=== PATIENT | male | born 1955 | race Caucasian/White ===

== ENCOUNTER 2018-08-18 10:23 | Observation (INO) ==
[2018-08-18] MEDS ORDERED: Acetaminophen 325 MG Tablet PO PRN (14:22)
[2018-08-18] MEDS ORDERED: Bisacodyl 10 MG Supp RECTAL PRN (14:22)
--- NOTE | 2018-08-18 16:53 | P.CONGI ---
History of Present Illness Consult date: 08/18/18 Consult reason: Lower GI bleeding Chief complaint: GI bleed. History of Present Illness: Mr. Hernandez is a 63-year-old male patient who is visiting his daughter from [place]. Patient has a significant medical history comprising of congestive heart failure, coronary artery bypass grafting, atrial fibrillation, pulmonary embolism (on Eliquis and aspirin last dose 08/17/2018), post cardiac arrest 2 years ago, depression, nystagmus, and is legally blind. History of pacemaker/ AICD insertion in 2014. Patient also has a 2-year history of a left upper lobe lung nodule for which he is planning to see a system configuration specialist when he returns to [place]. This service has been consulted to evaluate patient's report of blood in stool. Patient and daughter report that last night patient noted a small amount of bright red blood on toilet tissue after patient had a BM. Patient denied any straining or hard stools. This morning patient states he noticed a larger amount of bright red blood in the toilet water mixed with soft brown stool. Patient denies any nausea or vomiting,reports lower abdomen feels "tight". Patient denies any nausea or vomiting. States last EGD/ colonoscopy was done 2 years ago and to his recollection there was a benign polyp removed. Patient denies any known family history significant for any gastrointestinal disorders/diseases. He denies alcohol use and states that he smoked cigarettes for 38 years and stopped smoking 4 years ago. 08/18/2018 WBC 9.3 RBCs 4.6 hemoglobin 14.2 hematocrit 43.3 platelet count 250 INR 1.0 total bilirubin 0.5 AST 109 ALT 89 alk phos 93. Discussed plan for EGD/colonoscopy with patient and daughter both of her home verbalized understanding and agreement. <Sharron Delgado - Last Filed: 08/18/18 16:38> Review of Systems All other systems reviewed negative except as stated in HPI <Sharron Delgado - Last Filed: 08/18/18 16:38> PMFSH - History History Provided By: Patient - Medical History Medical History: Medical History (Last Updated 08/18/18 @ 11:49 by Adrianna Madsen RN) Atrial fibrillation CHF (congestive heart failure) Cardiac arrest Coronary artery disease Hypercholesterolemia Hyperlipidemia Hypothyroidism Left atrial thrombus Lung nodules Myocardial infarction Pacemaker Reactive depression Rib fracture - Surgical History Surgical History: Surgical History (Last Updated 08/18/18 @ 11:49 by Adrianna Madsen RN) AICD (automatic cardioverter/defibrillator) present Hx of CABG - Tobacco History Second Hand Smoke Exposure: No Tobacco Use In Past 30 Days: No Smoking Status: Former smoker Tobacco Type: Cigarettes - Alcohol History How Often Do You Have a Drink Containing Alcohol: Never - Substance Use History Substance History: No History of Abuse <Sharron Delgado - Last Filed: 08/18/18 16:38> - Medical History Medical History: Medical History (Last Updated 08/18/18 @ 11:49 by Adrianna Madsen RN) Atrial fibrillation CHF (congestive heart failure) Cardiac arrest Coronary artery disease Hypercholesterolemia Hyperlipidemia Hypothyroidism Left atrial thrombus Lung nodules Myocardial infarction Pacemaker Reactive depression Rib fracture - Surgical History Surgical History: Surgical History (Last Updated 08/18/18 @ 11:49 by Adrianna Madsen RN) AICD (automatic cardioverter/defibrillator) present Hx of CABG <Eren Wilson - Last Filed: 08/21/18 13:07> Medications and Allergies Active Medications: Active Medications Acetaminophen (Tylenol) 650 mg PO Q4H PRN PRN Reason: Headache, fever, pain 1-4 Al Hydroxide/Mg Hydroxide (Milk Of Magnesia Liq) 30 ml PO Q12H PRN PRN Reason: Mild Constipation Bisacodyl (Dulcolax Supp) 10 mg RECTAL DAILY PRN PRN Reason: SEVERE CONSITIPATION Lactulose (Lactulose Liq) 30 ml PO DAILY PRN PRN Reason: SEVERE CONSITIPATION Ondansetron HCl (Zofran Inj) 4 mg IV.PUSH Q6H PRN PRN Reason: NAUSEA OR VOMITING Sennosides (Senokot) 17.2 mg PO Q12H PRN PRN Reason: Moderate Constipation <Sharron Delgado - Last Filed: 08/18/18 16:38> <Eren Wilson - Last Filed: 08/21/18 13:07> Allergies Allergy/AdvReac Type Severity Reaction Status Date / Time No Known Allergies Allergy Verified 08/18/18 11:41 Home Medications Medication Instructions Recorded Confirmed Type alprazolam [Xanax] 0.25 mg PO BID 08/18/18 08/18/18 History amiodarone 400 mg PO DAILY 08/18/18 08/18/18 History apixaban [Eliquis] 5 mg PO BID 08/18/18 08/18/18 History atorvastatin 10 mg PO DAILY 08/18/18 08/18/18 History carvedilol 6.25 mg PO BID 08/18/18 08/18/18 History escitalopram oxalate 20 mg PO DAILY 08/18/18 08/18/18 History levothyroxine 25 mcg PO DAILY 08/18/18 08/18/18 History sacubitril-valsartan [Entresto] 1 tab PO DAILY 08/18/18 08/18/18 History zolpidem 10 mg PO HS PRN 08/18/18 08/18/18 History Exam - Constitutional no acute distress, obese, cooperative - Routine HEENT Exam Head: Present: normocephalic Eye: Present: nystagmus - Routine Respiratory Exam Present: CTA bilaterally. Absent: accessory muscle use - Routine Abdominal Exam Present: soft, normoactive bowel sounds, distended. Absent: guarding - Routine Extremities Exam Present: full ROM, pulses intact. Absent: edema - Routine Skin Exam Present: dry, pallor, warm - Routine Neurological Exam Present: alert, oriented X3 <Sharron Delgado - Last Filed: 08/18/18 16:38> Results - Labs CBC & Chem 7: 08/19/18 05:45 <Eren Wilson - Last Filed: 08/21/18 13:07> Assessment and Plan (1) Lower gastrointestinal hemorrhage Status: Acute Code(s): K92.2 - Gastrointestinal hemorrhage, unspecified - Plan Mr. Hernandez is a 63-year-old male patient who is visiting his daughter from [place]. Patient has a significant medical history comprising of congestive heart failure, coronary artery bypass grafting, atrial fibrillation, pulmonary embolism (on Eliquis and aspirin last dose 08/17/2018), post cardiac arrest 2 years ago, depression, nystagmus, and is legally blind. History of pacemaker/ AICD insertion in 2014. Patient also has a 2-year history of a left upper lobe lung nodule for which he is planning to see a system configuration specialist when he returns to [place]. This service has been consulted to evaluate patient's report of blood in stool. Patient and daughter report that last night patient noted a small amount of bright red blood on toilet tissue after patient had a BM. Patient denied any straining or hard stools. This morning patient states he noticed a larger amount of bright red blood in the toilet water mixed with soft brown stool. Patient denies any nausea or vomiting,reports lower abdomen feels "tight". Patient denies any nausea or vomiting. States last EGD/ colonoscopy was done 2 years ago and to his recollection there was a benign polyp removed. Patient denies any known family history significant for any gastrointestinal disorders/diseases. He denies alcohol use and states that he smoked cigarettes for 38 years and stopped smoking 4 years ago. 08/18/2018 WBC 9.3 RBCs 4.6 hemoglobin 14.2 hematocrit 43.3 platelet count 250 INR 1.0 total bilirubin 0.5 AST 109 ALT 89 alk phos 93. Discussed plan for EGD/colonoscopy with patient and daughter both of her home verbalized understanding and agreement Lower GI bleeding Scant amount of bright red blood noted last evening per patient. This a.m. larger amount of bright red blood noted mixed with soft stool. Patient denies any nausea or vomiting. Plan for EGD and colonoscopy in the a.m--Magnesium Citrate prep. Hemoglobin 14.2 hematocrit 43.3. Plan -Clear liquid diet -N.p.o. after midnight -Consent for EGD and colonoscopy -Magnesium citrate prep -Monitor for bleeding -Continue to hold Eliquis and aspirin -Monitor labs -Supportive care -Further recommendations to follow based on patient status and findings This patient has been seen by myself and Dr. Wilson and this note is written on his behalf - Attending Attestation Dr. Wilson <Sharron Delgado - Last Filed: 08/18/18 16:38> (1) Lower gastrointestinal hemorrhage Status: Inactive Code(s): K92.2 - Gastrointestinal hemorrhage, unspecified - Plan Seen and examined with [employer] MACHINE CONSULTANT, egd/colonoscopy planned. Monitor for bleeding. Thank you <Eren Wilson - Last Filed: 08/21/18 13:07>
[2018-08-18] MEDS ORDERED: Magnesium Citrate Liq 300 ML Bottle PO ONE ×2 (16:57→19:00)
--- NOTE | 2018-08-18 19:19 | P.HP ---
History of Present Illness Service: Hospitalist Primary Care Physician: UNKNOWN Chief Complaint: Blood in stool History of Present Illness: Mr. Win is a pleasant 63 year old male with a history of CAD s/p CABG, Afib, PE, cardiac arrest who presented to [facility] ED due to both bright red blood and dark stool. He has noticed small amount of blood in the stool in the last few days. However, today he noticed significant amount red blood. He has also noticed dark stool. He denies any nausea, vomiting. No chest pain but he does feel somewhat weak. He denies any changes in bladder habits. No shortness of breath, cough or abdominal pain. On arrival, Hgb 14.2, HCT 43.3, Plt 250K, INR 1.0. Past medical history: CAD, Afib, AICD placement, Pulmonary embolism Past surgical history : CABG in , Cholecystectomy, Social history, patient does not smoke or drink alcohol. Family history: No family history of Alzheimer's or Parkinson's. Review of Systems All other systems reviewed negative except as stated in HPI [facility] - History History Provided By: Patient - Medical History Medical History: Medical History (Last Updated 08/18/18 @ 11:49 by Adrianna Madsen RN) Atrial fibrillation CHF (congestive heart failure) Cardiac arrest Coronary artery disease Hypercholesterolemia Hyperlipidemia Hypothyroidism Left atrial thrombus Lung nodules Myocardial infarction Pacemaker Reactive depression Rib fracture - Surgical History Surgical History: Surgical History (Last Updated 08/18/18 @ 11:49 by Adrianna Madsen RN) AICD (automatic cardioverter/defibrillator) present Hx of CABG - Tobacco History Second Hand Smoke Exposure: No Tobacco Use In Past 30 Days: No Smoking Status: Former smoker Tobacco Type: Cigarettes - Alcohol History How Often Do You Have a Drink Containing Alcohol: Never - Substance Use History Substance History: No History of Abuse Medications and Allergies Active Medications: Active Medications Acetaminophen (Tylenol) 650 mg PO Q4H PRN PRN Reason: Headache, fever, pain 1-4 Al Hydroxide/Mg Hydroxide (Milk Of Magnesia Liq) 30 ml PO Q12H PRN PRN Reason: Mild Constipation Bisacodyl (Dulcolax Supp) 10 mg RECTAL DAILY PRN PRN Reason: SEVERE CONSITIPATION Lactulose (Lactulose Liq) 30 ml PO DAILY PRN PRN Reason: SEVERE CONSITIPATION Ondansetron HCl (Zofran Inj) 4 mg IV.PUSH Q6H PRN PRN Reason: NAUSEA OR VOMITING Sennosides (Senokot) 17.2 mg PO Q12H PRN PRN Reason: Moderate Constipation Allergies Allergy/AdvReac Type Severity Reaction Status Date / Time No Known Allergies Allergy Verified 08/18/18 11:41 Home Medications Medication Instructions Recorded Confirmed Type alprazolam [Xanax] 0.25 mg PO BID 08/18/18 08/18/18 History amiodarone 400 mg PO DAILY 08/18/18 08/18/18 History apixaban [Eliquis] 5 mg PO BID 08/18/18 08/18/18 History atorvastatin 10 mg PO DAILY 08/18/18 08/18/18 History carvedilol 6.25 mg PO BID 08/18/18 08/18/18 History escitalopram oxalate 20 mg PO DAILY 08/18/18 08/18/18 History levothyroxine 25 mcg PO DAILY 08/18/18 08/18/18 History sacubitril-valsartan [Entresto] 1 tab PO DAILY 08/18/18 08/18/18 History zolpidem 10 mg PO HS PRN 08/18/18 08/18/18 History Exam Vital signs: Vital Signs 08/18/18 16:00 Temperature 98.6 F Pulse Rate 78 Respiratory Rate 20 Blood Pressure 168/96 H Pulse Oximetry 95 Narrative: GENERAL: This is a well-nourished, well-developed patient, in no apparent distress. SKIN: No rashes, ecchymoses or lesions. Warm and dry. HEAD: Atraumatic. Normocephalic. No temporal or scalp tenderness. EYES: Pupils equal round and reactive. No injection or drainage. ENT: Nose without bleeding, purulent drainage or septal hematoma. Airway patent. NECK: Trachea midline. No lymphadenopathy. Supple, nontender, no meningeal signs. CARDIOVASCULAR: Regular rate and rhythm without murmurs, gallops, or rubs. No JVD. RESPIRATORY: Clear to auscultation. Breath sounds equal bilaterally. No wheezes , rales, or rhonchi. GASTROINTESTINAL: Abdomen soft, non-tender, nondistended. No guarding. Stool with bright red blood MUSCULOSKELETAL: Extremities without clubbing, cyanosis, or edema. NEUROLOGICAL: Awake and alert. Cranial nerves II through XII intact. No focal neurological deficits. Normal speech. Results - Labs CBC & Chem 7: 08/19/18 05:45 [place] VTE Risk Assessment [place] VTE Risk Assessment: No/Low Risk (score <= 1) Lawsoni Risk Assessment Model: Point Value = 1 Point Value = 2 Point Value = 3 Point Value = 5 Age 41-60 Minor surgery BMI > 25 kg/m2 Swollen legs Varicose veins or History of unexplained or recurrent spontaneous Oral contraceptives or hormone replacement Sepsis (< 1 month) Serious lung disease, including pneumonia (< 1 month) Abnormal pulmonary function Acute myocardial infarction Congestive heart failure (< 1 month) History of inflammatory bowel disease Medical patient at bed rest Age 61-74 Arthroscopic surgery Major open surgery (> 45 min) Laparoscopic surgery (> 45 min) Malignancy Confined to bed (> 72 hours) Immobilizing plaster cast Central venous access Age >= 75 History of VTE Family history of VTE Factor V Leiden Prothrombin [id number] Lupus anticoagulant Anticardiolipin antibodies Elevated serum homocysteine Heparin-induced thrombocytopenia Other congenital or acquired thrombophilia Stroke (< 1 month) Elective arthroplasty Hip, pelvis, or leg fracture Acute spinal cord injury (< 1 month) Prophylaxis Regimen: Total Risk Factor Score Risk Level Prophylaxis Regimen 0-1 Low Early ambulation 2 Moderate Order ONE of the following: *Sequential Compression Device (SCD) *Heparin 5000 units SQ BID 3-4 Higher Order ONE of the following medications: *Heparin 5000 units SQ TID *Enoxaparin/Lovenox 40 mg SQ daily (WT < 150 kg, CrCl > 30 mL/min) *Enoxaparin/Lovenox 30 mg SQ daily (WT < 150 kg, CrCl > 10-29 mL/min) *Enoxaparin/Lovenox 30 mg SQ BID (WT < 150 kg, CrCl > 30 mL/min) AND/OR *Sequential Compression Device (SCD) 5 or more Highest Order ONE of the following medications: *Heparin 5000 units SQ TID (Preferred with Epidurals) *Enoxaparin/Lovenox 40 mg SQ daily (WT < 150 kg, CrCl > 30 mL/min) *Enoxaparin/Lovenox 30 mg SQ daily (WT < 150 kg, CrCl > 10-29 mL/min) *Enoxaparin/Lovenox 30 mg SQ BID (WT < 150 kg, CrCl > 30 mL/min) AND *Sequential Compression Device (SCD) Assessment and Plan - Plan Mr. Win is a pleasant 63-year-old male with a history of CAD status post CABG, atrial fibrillation, pulmonary embolism currently on aspirin and apixaban who presented to the emergency department in [place] due to dark stool as well as bright red blood in the stool. His hemoglobin on admission was 14.2 hematocrit 43.3. Due to acute bleed, patient was transferred to the [facility] hospital for further workup. Acute GI bleed -Hold apixaban and aspirin. -We will consult GI for further workup. -We can likely d/c aspirin which may cause further GI bleed in future. -Protonix 40 mg twice daily Atrial fibrillation Hx of PE CAD s/p CABG Hx of Cardiac arrest -Apixaban can be continued when cleared by GI -Continue carvedilol 6.25 mg twice daily, amiodarone 400 mg p.o. daily, atorvastatin 10 mg p.o. daily. Depression - Continue Lexapro 20mg Qday. Hypothyroidism -continue levothyroxine 25 mcg daily. Full code. SCDs.
[2018-08-18 20:05] LABS: Hematocrit 42.9 % (39.0-51.0)
[2018-08-18] MEDS: Carvedilol 6.25 MG Tablet PO SCH (21:45)
[2018-08-19] MEDS ORDERED: Chlorhexidine Gluconate 2% 1 Pack (2 Cloths) TOPICAL ONE (04:25)
[2018-08-19] MEDS ORDERED: Metoprolol Tartrate 25 MG Tablet PO ONE (04:25)
[2018-08-19] MEDS ORDERED: Sodium Chlor 0.9% Inj 500 ML IV.SIG SCH (05:00)
[2018-08-19 06:21] LABS: Baso # (Auto) 0.1 th/mm3 (0.0-0.2); Eos % (Auto) 0.6 % (0.0-4.0); Hematocrit 40.8 % (39.0-51.0); Hemoglobin 13.5 gm/dL (13.0-17.0); Lymph # (Auto) 1.3 th/mm3 (1.0-4.8); Mean Corpuscular HGB Conc 33.1 % (32.0-36.0); Mean Corpuscular Hemoglobin 31.1 pg (27.0-34.0); Mean Platelet Volume 10.1 fL (7.0-11.0); Mono # (Auto) 0.8 th/mm3 (0.0-0.9); Mono % (Auto) 10.8 % (0.0-8.0); Neut # (Auto) 4.9 th/mm3 (1.8-7.7); Neut % (Auto) 69.6 % (16.0-70.0); Platelet Count 185 th/mm3 (150-450); Red Blood Count 4.34 mil/mm3 (4.50-5.90); Red Cell Distribution Width 16.3 % (11.6-17.2)
[2018-08-19] MEDS ORDERED: Amiodarone 200 MG Tablet PO SCH (09:00)
--- NOTE | 2018-08-19 09:02 | P.PN ---
Subjective Interval history: Follow-up visit GI bleed, CAD, status post CABG, A. fib on Eliquis. Patient seen and examined today. Reports he is doing okay. Denies any bloody bowel movements overnight. Plan to do an EGD colonoscopy today. Complains of pain and discomfort right lower extremity unable to bend it towards his abdomen. Abdomen is distended. Benign On palpation. Denies SOB/ dyspnea. Denies chest pain, palpitations, headaches, dizziness. Denies fevers, chills, n/v/d. Denies hematuria, dysuria. Physical Exam Vital signs: Vital Signs 08/18/18 16:00 08/18/18 20:00 08/19/18 00:00 Temperature 98.6 F 98.1 F 98.1 F Pulse Rate 78 81 79 Respiratory Rate 20 18 18 Blood Pressure 168/96 H 165/103 H 130/76 Pulse Oximetry 95 97 96 08/19/18 04:00 08/19/18 07:56 Temperature 98.3 F Pulse Rate 80 Respiratory Rate 18 16 Blood Pressure 129/76 Pulse Oximetry 95 Intake & Output 08/18/18 08/19/18 08/19/18 18:59 06:59 18:59 Intake Total 240 / 240 Output Total 300 / 300 Balance 240 / 240 -300 / -300 Weight 122.1 kg Intake: Oral 240 / 240 Output: Urine 300 / 300 Other: # Voids 3 Date of Last Bowel Movement 08/18/18 08/19/18 Weight On Admission 123.1 kg Narrative: GENERAL: This is a well-nourished, well-developed patient, in no apparent distress. SKIN: No rashes, ecchymoses or lesions. Warm and dry. HEAD: Normocephalic. EYES: Pupils equal round and reactive. No injection or drainage. ENT: Nose without bleeding. Airway patent. NECK: Trachea midline. CARDIOVASCULAR: Regular rate and rhythm without murmurs, gallops, or rubs. RESPIRATORY: Clear to auscultation. Breath sounds equal bilaterally. No wheezes , rales, or rhonchi. GASTROINTESTINAL: Abdomen soft, non-tender, protuberant. No guarding. MUSCULOSKELETAL: Extremities without clubbing, cyanosis, or edema. NEUROLOGICAL: Awake and alert. Cranial nerves II through XII intact. No focal neurological deficits. Normal speech. Results - Labs CBC & Chem 7: 08/19/18 05:45 Laboratory Results - last 24 hr 08/18/18 08/19/18 19:25 05:45 WBC 7.0 RBC 4.34 L Hgb 14.0 13.5 Hct 42.9 40.8 MCV 94.0 MCH 31.1 MCHC 33.1 RDW 16.3 Plt Count 185 MPV 10.1 Neut % (Auto) 69.6 Lymph % (Auto) 18.0 Woodruff % (Auto) 10.8 H Eos % (Auto) 0.6 Baso % (Auto) 1.0 Neut # (Auto) 4.9 Lymph # (Auto) 1.3 Woodruff # (Auto) 0.8 Eos # (Auto) 0.0 Baso # (Auto) 0.1 WBC Differential . Differential Comment Auto diff final Assessment and Plan - Plan Quirino is a pleasant 63 year old male with a history of CAD s/p CABG, Afib, PE, cardiac arrest who presented to [facility] ED due to both bright red blood and dark stool. His hemoglobin on admission was 14.2 hematocrit 43.3. Due to acute bleed, patient was transferred to the main hospital for further workup. Acute GI bleed -Plan for EGD colonoscopy today. -Colonoscopy findings diverticulosis sigmoid, descending lipoma mid transverse, biopsy was done. Polyp Paulding rectum 8 mm polypectomy with complete removal. Retroflexed views revealed internal hemorrhoids, small internal hemorrhoids, external hemorrhoids. Per GI recommends Benefiber daily, probiotics, yearly rectal exams. Able to restart anticoagulation advance diet. Okay to go home. Follow-up with GI. Colonoscopy in 5 years. -EGD duodenal normal biopsy gastritis, antral biopsy was done. Retroflexed views revealed a hiatal hernia. Continue with antireflux regimen, PPI. Return for EGD in 3 years. Follow-up with GI in the outpatient -Benefiber, probiotic, pantoprazole twice daily prescription Atrial fibrillation Hx of PE CAD s/p CABG Hx of Cardiac arrest -Apixaban can be continued when cleared by GI -Continue carvedilol 6.25 mg twice daily, amiodarone 400 mg p.o. daily, atorvastatin 10 mg p.o. daily. Depression - Continue Lexapro 20mg Qday. Hypothyroidism -continue levothyroxine 25 mcg daily. Discharge patient to home Condition on discharge: Improved Heart healthy diet diet as tolerated Ad Edie activity Rx written: Pantoprazole Commands Benefiber 2 tablespoons, probiotic daily. Follow-up with primary care physician 3-5 days. Schedule an appointment Follow-up with GI 7-10 days. Schedule an appointment Code Status: Full code Discussed Condition With: Patient, nursing Discharge Planning: Plan to DC home today.
[2018-08-19] MEDS ORDERED: Lidocaine PF 1% Inj 5 ML Syringe OTHER ONE (09:43)
--- NOTE | 2018-08-19 10:15 | GIPROC ---
[facility] [address] [facility]. [facility], [id number] COLONOSCOPY PROCEDURE REPORT EXAM DATE: 08/19/2018 PATIENT NAME: Geraldo Win MR #: [id number] BIRTHDATE: 1955 ENDOSCOPIST: Yandy Salmeron MD ORDER #: [id number] ANALYST: Etta Fields and Marlin Gaytan STATUS: inpatient INDICATIONS: The patient is a 63 yr old male here for a colonoscopy due to gi bleeding PROCEDURE PERFORMED: Colonoscopy with polypectomy Colonoscopy with biopsy MEDICATIONS: Per Anesthesia and None. PREP QUALITY: fair PREP TYPE:Other: ESTIMATED BLOOD LOSS: None CONSENT: The patient understands the risks and benefits of the procedure and understands that these risks include, but are not limited to: sedation, allergic reaction, infection, perforation and/or bleeding. Alternative means of evaluation and treatment include, among others: physical exam, x-rays, and/or surgical intervention. The patient elects to proceed with this endoscopic procedure. medical equipment was checked for proper function. Hand hygiene and appropriate measures for infection prevention was taken. After the risks, benefits and alternatives of the procedure were thoroughly explained, Informed consent was verified, confirmed and timeout was successfully executed by the treatment team. A digital exam revealed external hemorrhoids The Pentax [id number] endoscope was introduced through the anus and advanced to the cecum, which was identified by both the appendix and ileocecal valve. The instrument was then slowly withdrawn as the colon was fully examined. COLON FINDINGS: Diverticulosis sigmoid,descending lipoma midtransverse-biopsy polyp sessile rectum-8 mm hot snare polypectomy with complete removal. Retroflexed views revealed internal hemorrhoids and Retroflexed views revealed small internal hemorrhoids The scope was then completely withdrawn from the patient and the procedure terminated. PROCEDURE WITHDRAWAL TIME:6minutes ADVERSE EVENTS: There were no complications. IMPRESSIONS: 1. Diverticulosis sigmoid,descending lipoma midtransverse-biopsy polyp sessile rectum-8 mm hot snare polypectomy with complete removal 2. Retroflexed views revealed internal hemorrhoids 3. Retroflexed views revealed small internal hemorrhoids 4. Revealed external hemorrhoids RECOMMENDATIONS: 1. Await biopsy results. Biopsy results will not be ready for 7-10 days. If you don't hear from us in two weeks, call our office for results. 2. Benefiber 2 tsp daily 3. Probiotics from any [facility] or health food store 4. Yearly rectal exams 5. Ok to restart anticoagulation advance diet ok to dc home from [facility] 2 weeks RECALL: Return 5 years Colonoscopy Yandy Salmeron MD eSigned: Yandy Salmeron MD 08/19/2018 10:14 AM cc: PATIENT NAME: Geraldo Win MR#: [id number]
--- NOTE | 2018-08-19 10:17 | GIPROC ---
[facility] [address] [facility]. [facility], [address] EGD PROCEDURE REPORT EXAM DATE: 08/19/2018 PATIENT NAME: Geraldo Win MR #: [id number] BIRTHDATE: 1955 ATTENDING: Yandy Salmeron MD ORDER #: [id number] HANDTOOLS REPAIRER: Marlin Gaytan and Etta Fields STATUS: inpatient INDICATIONS: The patient is a 63 yr old male here for an EGD due to anemia, gi bleeding PROCEDURE PERFORMED: EGD w/ biopsy MEDICATIONS: Per Anesthesia and None. TOPICAL ANESTHETIC: none CONSENT: The patient understands the risks and benefits of the procedure and understands that these risks include, but are not limited to: sedation, allergic reaction, infection, perforation and/or bleeding. Alternative means of evaluation and treatment include, among others: physical exam, x-rays, and/or surgical intervention. The patient elects to proceed with this endoscopic procedure. medical equipment was checked for proper function. Hand hygiene and appropriate measures for infection prevention was taken. After the risks, benefits and alternatives of the procedure were thoroughly explained, Informed consent was verified, confirmed and timeout was successfully executed by the treatment team. The patient was anesthetized with topical anesthesia and the EC-[id number] (Pedi C) endoscope was introduced through the mouth and advanced to the second portion of the duodenum. Retroflexed views revealed a hiatal hernia The gastroscope was then slowly withdrawn and removed. Duodenum normal-biopsy gastritis antrum-biopsy. ADVERSE EVENTS: There were no complications. IMPRESSIONS: 1. Duodenum normal-biopsy gastritis antrum-biopsy 2. Retroflexed views revealed a hiatal hernia RECOMMENDATIONS: 1. Await biopsy results. Biopsy results will not be ready for 7-10 days. If you don't hear from us in two weeks, call our office for biopsy results. 2. Anti-reflux regimen 3. Continue PPI PATIENT CONDITION: stable DISPOSITION: Inpatient REPEAT EXAM: Return 3 years EGD Yandy Salmeron MD eSigned: Yandy Salmeron MD 08/19/2018 10:17 AM cc:
[2018-08-19 10:23] VITALS: PULSE 80
[2018-08-19] MEDS: Carvedilol 6.25 MG Tablet PO SCH (11:15)
[2018-08-19 12:36] VITALS: BP 135/85; RESP 18; TEMP 98.5; O2SAT 97
== END 2018-08-19 15:31 | disposition home or self-care (01) ==
LOC: PHEDDLT 10:23 → N05 10:23
PROVIDERS: ADMIT Hospitalist; ATTEND Hospitalist
PROC: COLONOS (2018-08-19 09:43)
PROC: PANENDO (2018-08-19 09:43)